=== PATIENT | female | born 1940 | race Caucasian/White ===

== ENCOUNTER → 2016-08-24 | Outpatient (REF) | payer MEDICARE, BC ==
[~2016-08-24] MED LIST: AMLODIPINE PO; ASPI1TAB PO; ATENPOW PO; BENI40TA3 PO; COMB0.2S OU; FURO20TA PO; LATA0.00 OU; SENN8.6T7 PO; VITACAP33 PO; VITAMIN D PO
== END ==
LOC: M LAB REF 13:25
PROVIDERS: ATTEND Internal Medicine
DX: Z85.00 Personal history of malignant neoplasm of unspecified digestive organ (principal)

== ENCOUNTER → 2016-12-11 | Outpatient (CLI) | payer MEDICARE, BC ==
[~2016-12-11] VITALS: Ht 168.9 cm; Wt 114.3 kg
[~2016-12-11] MED LIST changes: +ASPI81TA85 PO; +ATEN50TA2 PO; +FURO40TA2 PO; +IRBE150T12 PO; +LATA5OPD OU; +LIDOCAINE 2% INJ 100 MG/5 ML SDV (FOR ANES.) As Ordered ONE; +MEGA PO; +NS 1,000 ML IV ONE; +PROPOFOL 200 MG/20 ML VIAL As Ordered ONE; +[UNRECOGNIZED DRUG - OTHER] PO
--- NOTE | 2016-12-11 15:28 | ROOR ---
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 Providers: Joao SEWELL MD Referring MD: KRISH MOORE JR, MD Requesting Provider: Medicines: Sedation Required Anesthesia Staff Assistance Complications: No immediate complications. Procedure: Pre-Anesthesia Assessment: - The heart rate, respiratory rate, oxygen saturations, blood pressure, adequacy of pulmonary ventilation, and response to care were monitored throughout the procedure. The Colonoscope was introduced through the anus and advanced to the ileocolonic anastomosis. The colonoscopy was performed without difficulty. The patient tolerated the procedure well. The quality of the bowel preparation was good. Findings: The perianal and digital rectal examinations were normal. Multiple medium-mouthed diverticula were found in the sigmoid colon. There was narrowing of the colon in association with the diverticular opening. The exam was otherwise without abnormality. There was evidence of a prior end-to-end ileo-colonic anastomosis at the hepatic flexure. This was patent and was characterized by healthy appearing mucosa. Impression: - Moderate diverticulosis in the sigmoid colon. There was narrowing of the colon in association with the diverticular opening. - The examination was otherwise normal. - Patent end-to-end ileo-colonic anastomosis, characterized by healthy appearing mucosa. - No specimens collected. Recommendation: - Repeat colonoscopy in 2 years for surveillance based on personal history of colon cancer. Joao Sewell MD Joao SEWELL MD 12/11/2016 3:28:08 PM This report has been signed electronically. Number of Addenda: 0 Note Initiated On: 12/11/2016 3:00 PM Estimated Blood Loss: Estimated blood loss: none.
[2016-12-11 15:45] VITALS: BP 171/92
== END | disposition home or self-care (01) ==
LOC: M OPP 13:22
PROVIDERS: ATTEND Internal Medicine Gastroenterology
DX: Z12.11 Encounter for screening for malignant neoplasm of colon (principal); K57.30 Diverticulosis of large intestine without perforation or abscess without bleeding; Z98.0 Intestinal bypass and anastomosis status; Z85.038 Personal history of other malignant neoplasm of large intestine; I10 Essential (primary) hypertension; E78.5 Hyperlipidemia, unspecified; M19.90 Unspecified osteoarthritis, unspecified site; Z78.0 Asymptomatic menopausal state; I89.0 Lymphedema, not elsewhere classified; I34.1 Nonrheumatic mitral (valve) prolapse; J00 Acute nasopharyngitis [common cold]; Z91.040 Latex allergy status; Z79.82 Long term (current) use of aspirin; Z79.899 Other long term (current) drug therapy; Z85.42 Personal history of malignant neoplasm of other parts of uterus; Z80.0 Family history of malignant neoplasm of digestive organs

== ENCOUNTER → 2017-03-21 | Outpatient (REF) | payer MEDICARE, BC ==
[~2017-03-21] MED LIST changes: -LIDOCAINE 2% INJ 100 MG/5 ML SDV (FOR ANES.) As Ordered ONE; -NS 1,000 ML IV ONE; -PROPOFOL 200 MG/20 ML VIAL As Ordered ONE
== END ==
LOC: M LAB REF 08:06
PROVIDERS: ATTEND Internal Medicine
DX: Z85.00 Personal history of malignant neoplasm of unspecified digestive organ (principal)

== ENCOUNTER → 2018-04-09 | Outpatient (CLI) | payer MEDICARE, BC | LOC: M RAD 07:53 | DX: M25.571 Pain in right ankle and joints of right foot (principal) | CPT/HCPCS: 73721 ==

== ENCOUNTER → 2018-05-23 | Outpatient (CLI) | payer MEDICARE, BC | LOC: M RAD 14:01 | DX: Z12.31 Encounter for screening mammogram for malignant neoplasm of breast (principal) | CPT/HCPCS: 77067 ==

== ENCOUNTER 2018-08-26 10:52 | Outpatient (RCR) | payer BC, MEDICARE | END 2018-09-19 | LOC: M PT 10:52 | PROVIDERS: ATTEND Internal Medicine | DX: I89.0 Lymphedema, not elsewhere classified (principal) ==

== ENCOUNTER 2018-10-17 10:00 | Outpatient (RCR) | payer MEDICARE | END 2018-10-20 | LOC: M PT 10:00 | PROVIDERS: ATTEND Internal Medicine | DX: I89.0 Lymphedema, not elsewhere classified (principal) ==

== ENCOUNTER 2018-11-18 13:19 | Outpatient (RCR) | payer MEDICARE ==
[~2018-11-18 13:19] MED LIST changes: +LATA0.0013 OU; -LATA5OPD OU
== END 2018-11-19 ==
LOC: M PT 13:19
PROVIDERS: ATTEND Internal Medicine
DX: I89.0 Lymphedema, not elsewhere classified (principal)

== ENCOUNTER 2018-11-27 10:32 | Outpatient (RCR) | payer MEDICARE | END 2018-12-20 | LOC: M PT 10:32 | PROVIDERS: ATTEND Internal Medicine | DX: I89.0 Lymphedema, not elsewhere classified (principal) ==

== ENCOUNTER 2019-02-27 08:49 | Day surgery (SDC) | payer MEDICARE ==
[~2019-02-27] VITALS: Ht 165.1 cm; Wt 113.4 kg
[~2019-02-27 08:49] MED LIST changes: +LIDOCAINE 2% INJ 100 MG/5 ML SDV (FOR ANES.) As Ordered ONE; +NS 1,000 ML IV ONE; +PROPOFOL 200 MG/20 ML VIAL As Ordered ONE; +VITAD1000T PO; +XALA0.007 OU
--- NOTE | 2019-02-27 10:32 | ROOR ---
Patient Name: Shelly Echeverria Procedure Date: 02/27/2019 10:01 AM Date of : 1940 Age: 78 Room: [facility] Gender: Female Note Status: Finalized Procedure: Colonoscopy Indications: High risk colon cancer surveillance: Personal history of colon cancer Providers: Joao SEWELL MD Referring MD: KRISH MOORE JR, MD Requesting Provider: Medicines: Monitored Anesthesia Care Complications: No immediate complications. Procedure: Pre-Anesthesia Assessment: - The heart rate, respiratory rate, oxygen saturations, blood pressure, adequacy of pulmonary ventilation, and response to care were monitored throughout the procedure. The Colonoscope was introduced through the anus and advanced to the Ileocecal anastomosis. The colonoscopy was performed without difficulty. The patient tolerated the procedure well. The quality of the bowel preparation was good. Findings: The perianal and digital rectal examinations were normal. Multiple small-mouthed diverticula were found in the sigmoid colon. There was evidence of diverticular spasm. A 4 mm polyp was found in the sigmoid colon. The polyp was sessile. The polyp was removed with a cold snare. Resection and retrieval were complete. Small Internal Hemorrhoids. The exam was otherwise without abnormality on direct and retroflexion views. There was evidence of a prior functional end-to-end ileo-colonic anastomosis at the hepatic flexure. Impression: - Diverticulosis in the sigmoid colon. There was evidence of diverticular spasm. - One 4 mm polyp in the sigmoid colon, removed with a cold snare. Resected and retrieved. - Small Internal Hemorrhoids. - The examination was otherwise normal on direct and retroflexion views. Recommendation: - Repeat colonoscopy in 5 years for surveillance based on personal history of colon cancer. Joao Sewell MD Joao SEWELL MD 02/27/2019 10:32:33 AM Electronically signed by Joao SEWELL MD Number of Addenda: 0 Note Initiated On: 02/27/2019 10:01 AM Estimated Blood Loss: Estimated blood loss: none.
[2019-02-27 10:50] VITALS: BP 110/70
== END 2019-02-27 11:08 | disposition home or self-care (01) ==
LOC: M OPP 08:49
PROVIDERS: ATTEND Internal Medicine Gastroenterology
DX: Z12.11 Encounter for screening for malignant neoplasm of colon (principal); Z85.038 Personal history of other malignant neoplasm of large intestine; D12.5 Benign neoplasm of sigmoid colon; K64.8 Other hemorrhoids; Z98.0 Intestinal bypass and anastomosis status; K57.30 Diverticulosis of large intestine without perforation or abscess without bleeding; I10 Essential (primary) hypertension; I34.0 Nonrheumatic mitral (valve) insufficiency; I89.0 Lymphedema, not elsewhere classified; M19.90 Unspecified osteoarthritis, unspecified site; Z78.0 Asymptomatic menopausal state; Z85.42 Personal history of malignant neoplasm of other parts of uterus; Z91.040 Latex allergy status; Z79.82 Long term (current) use of aspirin; Z79.899 Other long term (current) drug therapy

== ENCOUNTER → 2019-07-18 | Outpatient (REF) | payer MEDICARE ==
[~2019-07-18] MED LIST changes: +CHOL100029 PO; -LIDOCAINE 2% INJ 100 MG/5 ML SDV (FOR ANES.) As Ordered ONE; -NS 1,000 ML IV ONE; -PROPOFOL 200 MG/20 ML VIAL As Ordered ONE; -VITAD1000T PO
== END ==
LOC: M LAB REF 12:50
PROVIDERS: ATTEND Internal Medicine
DX: Z85.00 Personal history of malignant neoplasm of unspecified digestive organ (principal)

== ENCOUNTER 2019-12-11 09:46 | Outpatient (RCR) | payer MEDICARE ==
[~2019-12-11 09:46] MED LIST changes: -IRBE150T12 PO; +IRBE150T7 PO
== END 2019-12-21 ==
LOC: M PT 09:46
PROVIDERS: ATTEND Internal Medicine
DX: I89.0 Lymphedema, not elsewhere classified (principal)

== ENCOUNTER 2020-05-13 13:33 | Outpatient (RCR) | payer MEDICARE ==
[~2020-05-13 13:33] MED LIST changes: -ASPI81TA85 PO; +ASPI81TA86 PO
== END 2020-05-22 ==
LOC: M PT 13:33
PROVIDERS: ATTEND Internal Medicine
DX: I89.0 Lymphedema, not elsewhere classified (principal)

== ENCOUNTER → 2020-07-27 | Outpatient (REF) | payer MEDICARE | LOC: M LAB REF 12:05 | PROVIDERS: ATTEND Internal Medicine | DX: Z85.00 Personal history of malignant neoplasm of unspecified digestive organ (principal) ==

== ENCOUNTER → 2020-10-20 | Outpatient (RCR) | payer MEDICARE | LOC: M PT 10-04 09:05 | PROVIDERS: ATTEND Internal Medicine | DX: I89.0 Lymphedema, not elsewhere classified (principal) ==

== ENCOUNTER 2020-11-16 08:30 | Outpatient (RCR) | payer MEDICARE | END 2020-11-19 | LOC: M PT 08:30 | PROVIDERS: ATTEND Internal Medicine | DX: I89.0 Lymphedema, not elsewhere classified (principal); Z47.89 Encounter for other orthopedic aftercare ==

== ENCOUNTER 2021-05-18 08:27 | Outpatient (RCR) | payer MEDICARE | END 2021-05-22 | LOC: M PT 08:27 | PROVIDERS: ATTEND Internal Medicine | DX: I89.0 Lymphedema, not elsewhere classified (principal) ==

== ENCOUNTER 2021-11-16 09:05 | Outpatient (RCR) | payer MEDICARE | END 2021-11-19 | LOC: M PT 09:05 | PROVIDERS: ATTEND Internal Medicine | DX: I89.0 Lymphedema, not elsewhere classified (principal) ==

== ENCOUNTER → 2022-05-22 | Outpatient (RCR) | payer MEDICARE | LOC: M PT 09:49 | PROVIDERS: ATTEND Internal Medicine | DX: I89.0 Lymphedema, not elsewhere classified (principal) ==

== ENCOUNTER 2022-09-06 12:35 | Outpatient (RCR) | payer MEDICARE | END 2022-09-19 | LOC: M PT 12:35 | PROVIDERS: ATTEND Internal Medicine | DX: I89.0 Lymphedema, not elsewhere classified (principal) ==

== ENCOUNTER 2022-12-19 10:53 | Outpatient (RCR) | payer MEDICARE | END 2022-12-20 | LOC: M PT 10:53 | PROVIDERS: ATTEND Internal Medicine | DX: I89.0 Lymphedema, not elsewhere classified (principal) ==

== ENCOUNTER 2023-01-08 09:48 | Outpatient (RCR) | payer MEDICARE | END 2023-01-19 | LOC: M PT 09:48 | PROVIDERS: ATTEND Internal Medicine | DX: I89.0 Lymphedema, not elsewhere classified (principal) ==

== ENCOUNTER → 2023-02-14 | Outpatient (REF) | payer MEDICARE | LOC: M LAB REF 11:21 | PROVIDERS: ATTEND Nurse Practitioner Family | DX: N39.0 Urinary tract infection, site not specified (principal) ==

== ENCOUNTER → 2023-02-19 | Outpatient (REF) | payer MEDICARE ==
[2023-02-19 16:57] LABS: APPEARANCE, URINE HAZY (CLEAR); BACTERIA, URINE AUTO 1+ (NEGATIVE); BILIRUBIN, URINE AUTO NEGATIVE (NEGATIVE); BLOOD, URINE BLOOD 1+ (NEGATIVE); COLOR, URINE YELLOW (YELLOW); GLUCOSE, URINE (UA) AUTO NEGATIVE (NEGATIVE); KETONE, URINE AUTO NEGATIVE (NEGATIVE); LEUKOCYTE ESTERASE, URINE AUTO 1+ (NEGATIVE); MUCUS, URINE SMALL (NEGATIVE); NITRITE, URINE AUTO NEGATIVE (NEGATIVE); PROTEIN, URINE AUTO 1+ mg/dL (NEGATIVE); RBC, URINE AUTO 40 /HPF (0-3); SPECIFIC GRAVITY URINE AUTO 1.015 (1.002-1.035); SQUAMOUS EPITHELIAL CELL UR AU 3 /HPF (0-6); WBC, URINE AUTO 43 /HPF (0-3)
== END ==
LOC: M LAB REF 16:08
PROVIDERS: ATTEND Internal Medicine
DX: N39.0 Urinary tract infection, site not specified (principal)

== ENCOUNTER → 2023-06-06 | Outpatient (REF) | payer MEDICARE | LOC: M SMT 15:21 | PROVIDERS: ATTEND Urology | DX: R30.9 Painful micturition, unspecified (principal) ==

== ENCOUNTER 2023-07-09 07:00 | Day surgery (SDC) | payer MEDICARE ==
[~2023-07-09] VITALS: Ht 165.1 cm; Wt 110.8 kg
[~2023-07-09 07:00] MED LIST changes: +BISA5TAB15 PO; +BISO5TAB14 PO; +BRIM5DRO4 OU; +CHOL10007 PO; +CRAN400C PO; +TROS20TA3 PO; +VITA100T91 PO; +VITATAB73 PO; +ceFAZolin SOD 2 GM in IV 1 EA IV ONE
[2023-07-09] MEDS ORDERED: CEPH25SS PO (07:35)
[2023-07-09] MEDS ORDERED: LR 1,000 ML IV SCH ×2 (08:25→10:00)
[2023-07-09] MEDS ORDERED: propofoL 200 MG/20 ML VIAL As Ordered ONE (08:43)
[2023-07-09] MEDS ORDERED: ONDANSETRON 4MG 2ML VIAL As Ordered ONE (08:43)
[2023-07-09] MEDS ORDERED: LIDOCAINE 2% 100MG/5ML SDV (FOR ANES.) As Ordered ONE (08:43)
[2023-07-09] MEDS ORDERED: fentaNYL 100 MCG/2 ML INJECTION As Ordered ONE (08:43)
[2023-07-09] MEDS ORDERED: PHENYLephrine 500MCG 5ML (100MCG/ML) SYRINGE As Ordered ONE (09:06)
[2023-07-09] MEDS ORDERED: ePHEDrine SULFATE 25 MG/5 ML(5MG/ML) SYRINGE As Ordered ONE (09:06)
[2023-07-09] MEDS ORDERED: ONDANSETRON 4MG 2ML VIAL IV PRN (10:00)
[2023-07-09] MEDS ORDERED: HYDROMORPHONE HCL 0.5 MG/ 0.5 ML SYRINGE IV PRN (10:00)
[2023-07-09] MEDS ORDERED: fentaNYL 100 MCG/2 ML INJECTION IV PRN (10:00)
[2023-07-09] MEDS ORDERED: PYRI1TAB5 PO (10:02)
[2023-07-09] MEDS ORDERED: OXYB5TAB11 PO (10:02)
[2023-07-09] MEDS ORDERED: MACR100C43 PO (10:02)
[2023-07-09] MEDS: oxyCODONE 5MG TAB PO PRN ×2 (10:14→10:56)
[2023-07-09 13:12] VITALS: BP 171/85; TEMP 97.6; O2SAT 95
== END 2023-07-09 13:15 | disposition home or self-care (01) ==
LOC: M SDC 07:00
PROVIDERS: ATTEND Urology
DX: N32.9 Bladder disorder, unspecified (principal); I10 Essential (primary) hypertension; Z85.028 Personal history of other malignant neoplasm of stomach; I89.0 Lymphedema, not elsewhere classified; Z79.899 Other long term (current) drug therapy; Z91.040 Latex allergy status
CPT/HCPCS: 52240; 88305; J1100; J2371; J2405; J3010

== ENCOUNTER → 2023-10-16 | Outpatient (REF) | payer MEDICARE ==
[~2023-10-16] MED LIST changes: +CEPH25SS PO; +IRBE150T27 PO; -IRBE150T7 PO; +MACR100C43 PO; +OXYB5TAB14 PO; +PYRI1TAB5 PO; -ceFAZolin SOD 2 GM in IV 1 EA IV ONE
[2023-10-16 17:55] LABS: APPEARANCE, URINE HAZY (CLEAR); BACTERIA, URINE AUTO 2+ (NEGATIVE); BILIRUBIN, URINE AUTO NEGATIVE (NEGATIVE); BLOOD, URINE BLOOD 2+ (NEGATIVE); COLOR, URINE YELLOW (YELLOW); GLUCOSE, URINE (UA) AUTO NEGATIVE (NEGATIVE); KETONE, URINE AUTO NEGATIVE (NEGATIVE); LEUKOCYTE ESTERASE, URINE AUTO 2+ (NEGATIVE); MUCUS, URINE SMALL (NEGATIVE); NITRITE, URINE AUTO NEGATIVE (NEGATIVE); PROTEIN, URINE AUTO 2+ mg/dL (NEGATIVE); RBC, URINE AUTO TNTC /HPF (0-3); SPECIFIC GRAVITY URINE AUTO 1.011 (1.002-1.035); SQUAMOUS EPITHELIAL CELL UR AU 0 /HPF (0-6); UROBILINOGEN, URINE AUTO 0.2 mg/dL (0.0-2.0); WBC, URINE AUTO 108 /HPF (0-3)
== END ==
LOC: M LABSMT 13:58
PROVIDERS: ATTEND Urology
DX: Z85.51 Personal history of malignant neoplasm of bladder (principal); Z79.899 Other long term (current) drug therapy

== ENCOUNTER → 2024-01-16 | Outpatient (REF) | payer MEDICARE ==
[~2024-01-16] MED LIST changes: -CRAN400C PO; +CRANBERRY400 MG PO
[2024-01-16 18:39] LABS: APPEARANCE, URINE HAZY (CLEAR); BACTERIA, URINE AUTO NEGATIVE (NEGATIVE); BILIRUBIN, URINE AUTO NEGATIVE (NEGATIVE); BLOOD, URINE BLOOD 3+ (NEGATIVE); COLOR, URINE STRAW (YELLOW); GLUCOSE, URINE (UA) AUTO NEGATIVE (NEGATIVE); KETONE, URINE AUTO NEGATIVE (NEGATIVE); LEUKOCYTE ESTERASE, URINE AUTO TRACE (NEGATIVE); NITRITE, URINE AUTO NEGATIVE (NEGATIVE); PROTEIN, URINE AUTO 1+ mg/dL (NEGATIVE); RBC, URINE AUTO 0 /HPF (0-3); SPECIFIC GRAVITY URINE AUTO 1.009 (1.002-1.035); SQUAMOUS EPITHELIAL CELL UR AU 0 /HPF (0-6); UROBILINOGEN, URINE AUTO 0.2 mg/dL (0.0-2.0); WBC, URINE AUTO 0 /HPF (0-3)
== END ==
LOC: M LABSMT 13:40
PROVIDERS: ATTEND Urology
DX: Z85.51 Personal history of malignant neoplasm of bladder (principal); Z79.899 Other long term (current) drug therapy

== ENCOUNTER → 2024-04-01 | Outpatient (REF) | payer MEDICARE ==
[2024-04-01 18:45] LABS: APPEARANCE, URINE HAZY (CLEAR); BACTERIA, URINE AUTO NEGATIVE (NEGATIVE); BILIRUBIN, URINE AUTO NEGATIVE (NEGATIVE); BLOOD, URINE BLOOD 3+ (NEGATIVE); COLOR, URINE YELLOW (YELLOW); GLUCOSE, URINE (UA) AUTO NEGATIVE (NEGATIVE); KETONE, URINE AUTO NEGATIVE (NEGATIVE); LEUKOCYTE ESTERASE, URINE AUTO 2+ (NEGATIVE); MUCUS, URINE SMALL (NEGATIVE); NITRITE, URINE AUTO NEGATIVE (NEGATIVE); PROTEIN, URINE AUTO 2+ mg/dL (NEGATIVE); RBC, URINE AUTO TNTC /HPF (0-3); SPECIFIC GRAVITY URINE AUTO 1.012 (1.002-1.035); SQUAMOUS EPITHELIAL CELL UR AU 1 /HPF (0-6); UROBILINOGEN, URINE AUTO 0.2 mg/dL (0.0-2.0); WBC, URINE AUTO 67 /HPF (0-3)
== END ==
LOC: M LABSMT 14:06
PROVIDERS: ATTEND Urology
DX: Z85.51 Personal history of malignant neoplasm of bladder (principal); Z79.899 Other long term (current) drug therapy

== ENCOUNTER → 2024-04-29 | Outpatient (REF) | payer MEDICARE ==
[2024-04-29 19:23] LABS: APPEARANCE, URINE CLOUDY (CLEAR); BACTERIA, URINE AUTO 1+ (NEGATIVE); BILIRUBIN, URINE AUTO NEGATIVE (NEGATIVE); BLOOD, URINE BLOOD 3+ (NEGATIVE); COLOR, URINE AMBER (YELLOW); GLUCOSE, URINE (UA) AUTO NEGATIVE (NEGATIVE); KETONE, URINE AUTO NEGATIVE (NEGATIVE); LEUKOCYTE ESTERASE, URINE AUTO 1+ (NEGATIVE); MUCUS, URINE SMALL (NEGATIVE); NITRITE, URINE AUTO NEGATIVE (NEGATIVE); PROTEIN, URINE AUTO 2+ mg/dL (NEGATIVE); RBC, URINE AUTO TNTC /HPF (0-3); SPECIFIC GRAVITY URINE AUTO 1.015 (1.002-1.035); SQUAMOUS EPITHELIAL CELL UR AU 10 /HPF (0-6); UROBILINOGEN, URINE AUTO 0.2 mg/dL (0.0-2.0); WBC, URINE AUTO 178 /HPF (0-3)
== END ==
LOC: M SMT 17:13
PROVIDERS: ATTEND Urology
DX: Z87.440 Personal history of urinary (tract) infections (principal); Z79.899 Other long term (current) drug therapy

== ENCOUNTER → 2024-05-01 | Outpatient (REF) | payer MEDICARE | LOC: M LAB REF 12:33 | PROVIDERS: ATTEND Internal Medicine | DX: C67.9 Malignant neoplasm of bladder, unspecified (principal); Z85.42 Personal history of malignant neoplasm of other parts of uterus; Z85.038 Personal history of other malignant neoplasm of large intestine ==

== ENCOUNTER 2024-05-15 09:25 | Emergency (ER) | payer MEDICARE ==
[2024-05-15] MEDS: AMIODARONE 150MG/3ML VIAL IVP STA (09:31)
[2024-05-15] MEDS: EPINEPHrine 1MG/10ML SYRINGE 1.5IN IV STA ×5 (09:35→09:48)
== END 2024-05-15 14:04 | disposition expired ==
LOC: M ED 09:25
DX: I46.9 Cardiac arrest, cause unspecified (principal); E78.5 Hyperlipidemia, unspecified; I10 Essential (primary) hypertension; M54.50 Low back pain, unspecified; Z91.040 Latex allergy status; Z79.899 Other long term (current) drug therapy; Z85.42 Personal history of malignant neoplasm of other parts of uterus
CPT/HCPCS: 92950; 96374; 99285; J0171; J0282